=== PATIENT | female | born 1945 | race Caucasian/White ===

== ENCOUNTER 2019-11-20 09:11 | Day surgery (SDC) | payer MEDICARE, MEDICAID ==
[2019-11-20] MEDS ORDERED: Propofol 200 MG/20 ML SDV IV ONE (09:12)
[2019-11-20] MEDS ORDERED: Lactated Ringers 1,000 ML IV SCH (09:15)
[2019-11-20] MEDS ORDERED: Sodium Chloride 0.9% 10 ML Syringe FLUSH PRN (09:15)
--- NOTE | 2019-11-20 11:06 | PCM.OPNOTE ---
- General Post-Op/Procedure Note Date of Surgery/Procedure: 11/20/19 Operative Procedure(s): c scope Findings: normal exam Pre Op Diagnosis: personal hx of colon polyps Post-Op Diagnosis: Same Anesthesia Technique: MAC Primary Surgeon: Jose Gill Anesthesia Provider: Kasia Solano Pathology: none Complications: None Condition: Good Free Text/Narrative:: see dictation
[2019-11-20] MEDS ORDERED: Sodium Chloride 0.9% 10 ML SDV IV SCH (12:30)
[2019-11-20] MEDS ORDERED: Sodium Chloride 0.9% 500 ML IV SCH (12:30)
--- NOTE | 2019-11-20 14:45 | OR ---
DATE OF OPERATION: 11/20/2019 SURGEON: Jose Gill MD PROCEDURE PERFORMED: Colonoscopy. PREOPERATIVE DIAGNOSIS: Personal history of colon polyps. POSTOPERATIVE DIAGNOSIS: Normal exam. INDICATIONS FOR PROCEDURE: This is a 74-year-old white female who has a history of adenomatous polyps with some low-grade dysplasia removed in the past. She presents now for followup exam. DESCRIPTION OF PROCEDURE: After an excellent IV sedation was administered, digital rectal exam was performed. No marked abnormality was noted. Flexible colonoscope was inserted and advanced with difficulty to the cecum. The prep was excellent. The following findings were noted: Ascending colon unremarkable. Transverse colon unremarkable. Descending colon unremarkable. Sigmoid and rectum unremarkable. The colon was deflated as the scope was removed. The patient tolerated the procedure well and was taken to Recovery in good condition. /[id number] BALJEET/VIANCA
[2019-11-20 15:10] VITALS: BP 119/66; PULSE 54
== END 2019-11-20 12:00 | disposition home or self-care (01) ==
LOC: FB.SDS 09:11
PROVIDERS: ATTEND Surgery
DX: Z12.11 Encounter for screening for malignant neoplasm of colon (principal); E03.9 Hypothyroidism, unspecified; E78.5 Hyperlipidemia, unspecified; Z79.899 Other long term (current) drug therapy; Z88.8 Allergy status to other drugs, medicaments and biological substances; Z86.010 Personal history of colon polyps; Z98.890 Other specified postprocedural states
CPT/HCPCS: 00811; G0105; J2704; J7120

== ENCOUNTER 2024-06-10 06:36 | Day surgery (SDC) | payer MEDICARE, MEDICAID ==
[2024-06-10] MEDS ORDERED: Midazolam 1 MG/ML 2 ML SDV IV ONE (06:37)
[2024-06-10] MEDS ORDERED: fentaNYL 100 MCG/2 ML SDV IV ONE (06:37)
[2024-06-10] MEDS ORDERED: Lactated Ringers 1,000 ML IV PRN (06:45)
[2024-06-10] MEDS: Sodium Chloride 0.9% 10 ML Syringe FLUSH PRN (07:25)
[2024-06-10] MEDS: acetaZOLAMIDE 500 MG Cap.ER PO ONE (08:45)
[2024-06-10 10:24] VITALS: BP 148/74; PULSE 62
== END 2024-06-10 09:08 | disposition home or self-care (01) ==
LOC: FB.SDS 06:36
PROVIDERS: ATTEND Ophthalmology
DX: H26.9 Unspecified cataract (principal); E78.5 Hyperlipidemia, unspecified; E03.9 Hypothyroidism, unspecified; Z79.899 Other long term (current) drug therapy; F17.210 Nicotine dependence, cigarettes, uncomplicated
CPT/HCPCS: A9270-GY; J2250; J3010; V2632

== ENCOUNTER 2024-07-01 06:50 | Day surgery (SDC) | payer MEDICARE, MEDICAID ==
[~2024-07-01 06:50] MED LIST: Lactated Ringers 1,000 ML IV PRN; Sodium Chloride 0.9% 10 ML Syringe FLUSH PRN
[2024-07-01] MEDS ORDERED: Midazolam 1 MG/ML 2 ML SDV IV ONE (06:51)
[2024-07-01] MEDS ORDERED: fentaNYL 100 MCG/2 ML SDV IV ONE (06:51)
[2024-07-01] MEDS: acetaZOLAMIDE 500 MG Cap.ER PO ONE (08:57)
[2024-07-01 12:52] VITALS: BP 144/66; PULSE 59
== END 2024-07-01 09:50 | disposition home or self-care (01) ==
LOC: FB.SDS 06:50
PROVIDERS: ATTEND Ophthalmology
DX: H26.9 Unspecified cataract (principal); E03.9 Hypothyroidism, unspecified; E78.5 Hyperlipidemia, unspecified; F20.9 Schizophrenia, unspecified; Z79.890 Hormone replacement therapy; Z79.899 Other long term (current) drug therapy
CPT/HCPCS: 66984; A9270; J2250; J3010; V2632; 00142; 99100